=== PATIENT | female | born 1990 | race Two or more races ===

== ENCOUNTER 2019-08-04 09:14 | Outpatient (CLI) | payer OTHER | END 2019-08-04 09:18 | disposition home or self-care (01) | LOC: RX STUDY 09:14 | DX: R13.19 Other dysphagia (principal) ==

== ENCOUNTER 2022-09-01 17:03 | Emergency (ER) | payer OTHER ==
[~2022-09-01] VITALS: Ht 162.6 cm; Wt 120.2 kg
== END 2022-09-01 22:34 | disposition home or self-care (01) ==
LOC: ER 17:03
DX: J06.9 Acute upper respiratory infection, unspecified (principal); K29.70 Gastritis, unspecified, without bleeding; R53.81 Other malaise; Z3A.09 9 weeks gestation of pregnancy; Z20.822 Contact with and (suspected) exposure to COVID-19

== ENCOUNTER 2022-09-29 13:52 | Outpatient (CLI) | payer OTHER | END 2022-09-29 14:39 | disposition home or self-care (01) | LOC: PRENATAL 13:52 | PROVIDERS: ATTEND Obstetrics & Gynecology Maternal & Fetal Medicine | DX: O36.80X0 Pregnancy with inconclusive fetal viability, not applicable or unspecified (principal); O34.219 Maternal care for unspecified type scar from previous cesarean delivery; Z14.8 Genetic carrier of other disease; Z3A.12 12 weeks gestation of pregnancy ==

== ENCOUNTER 2022-11-25 09:22 | Emergency (ER) | payer OTHER ==
[~2022-11-25] VITALS: Ht 160 cm; Wt 120.7 kg
[2022-11-25] MEDS ORDERED: ZITHROMAX500 MG PO (12:07)
[2022-11-25] MEDS ORDERED: TUSSIN100 MG/51 PO (12:07)
[2022-11-25] MEDS ORDERED: IPRATROPIU0.2 MG/1 M IH (12:07)
== END 2022-11-25 12:18 | disposition home or self-care (01) ==
LOC: ER 09:22
PROVIDERS: General Practice
DX: O99.512 Diseases of the respiratory system complicating pregnancy, second trimester (principal); J06.9 Acute upper respiratory infection, unspecified; Z3A.22 22 weeks gestation of pregnancy; Z20.822 Contact with and (suspected) exposure to COVID-19

== ENCOUNTER 2022-11-26 16:04 | Outpatient (CLI) | payer OTHER ==
[~2022-11-26 16:04] MED LIST: IPRATROPIU0.2 MG/1 M IH; TUSSIN100 MG/51 PO; ZITHROMAX500 MG PO
== END 2022-11-26 17:07 | disposition home or self-care (01) ==
LOC: PRENATAL 16:04
PROVIDERS: ATTEND Obstetrics & Gynecology Maternal & Fetal Medicine
DX: O35.3XX0 Maternal care for (suspected) damage to fetus from viral disease in mother, not applicable or unspecified (principal); O34.219 Maternal care for unspecified type scar from previous cesarean delivery; O99.210 Obesity complicating pregnancy, unspecified trimester; O44.00 Complete placenta previa NOS or without hemorrhage, unspecified trimester; Z3A.21 21 weeks gestation of pregnancy

== ENCOUNTER 2023-01-15 15:48 | Outpatient (CLI) | payer OTHER | END 2023-01-15 15:49 | disposition home or self-care (01) | LOC: PRENATAL 15:48 | PROVIDERS: ATTEND Obstetrics & Gynecology Maternal & Fetal Medicine | DX: O26.849 Uterine size-date discrepancy, unspecified trimester (principal); O34.219 Maternal care for unspecified type scar from previous cesarean delivery; O99.210 Obesity complicating pregnancy, unspecified trimester; Z3A.28 28 weeks gestation of pregnancy ==

== ENCOUNTER → 2023-02-24 | Outpatient (CLI) | payer OTHER | END | disposition home or self-care (01) | LOC: PRENATAL 09:39 | PROVIDERS: ATTEND Obstetrics & Gynecology Maternal & Fetal Medicine | DX: O26.849 Uterine size-date discrepancy, unspecified trimester (principal); O36.8199 Decreased fetal movements, unspecified trimester, other fetus; O34.219 Maternal care for unspecified type scar from previous cesarean delivery; O99.210 Obesity complicating pregnancy, unspecified trimester; Z3A.34 34 weeks gestation of pregnancy ==